=== PATIENT | female | born 1985 | race Caucasian/White ===

== ENCOUNTER 2016-08-06 11:17 | Emergency (ER) | payer BC ==
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
[2016-08-06 14:34] VITALS: BP 137/92
== END 2016-08-06 14:54 | disposition home or self-care (01) ==
LOC: UCEAST 11:17
DX: N63 Unspecified lump in breast (principal); N60.19 Diffuse cystic mastopathy of unspecified breast; Z80.3 Family history of malignant neoplasm of breast; F17.210 Nicotine dependence, cigarettes, uncomplicated
CPT/HCPCS: 99211; G0463

== ENCOUNTER 2016-11-21 20:55 | Emergency (ER) | payer BC, OTHER ==
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
[2016-11-21] MEDS ORDERED: Ibuprofen TAB* 400 MG PO ONE (21:54)
[2016-11-21 22:00] VITALS: BP 111/73
== END 2016-11-21 22:02 | disposition left against medical advice (07) ==
LOC: UCEAST 20:55
DX: M54.2 Cervicalgia (principal); R51 Headache; M25.521 Pain in right elbow; F41.9 Anxiety disorder, unspecified; F32.9 Major depressive disorder, single episode, unspecified; F17.210 Nicotine dependence, cigarettes, uncomplicated
CPT/HCPCS: 99212; A9270-GY; G0463

== ENCOUNTER 2016-11-21 22:18 | Emergency (ER) | payer SELFPAY ==
[2016-11-21] MEDS ORDERED: oxyCODONE/Acetamin 5/325 MG* TAB PO ONE (23:05)
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
[2016-11-21] MEDS ORDERED: Ondansetron ODT TAB* 4 MG PO ONE (23:41)
[2016-11-22] MEDS ORDERED: oxyCODONE/Acetamin 5/325 MG* TAB PO ONE (00:09)
[2016-11-22 00:50] VITALS: BP 115/70
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
== END 2016-11-22 00:45 | disposition home or self-care (01) ==
LOC: ED 22:18
DX: S50.01XA Contusion of right elbow, initial encounter (principal); R51 Headache; Y92.9 Unspecified place or not applicable; V89.2XXA Person injured in unspecified motor-vehicle accident, traffic, initial encounter; F17.210 Nicotine dependence, cigarettes, uncomplicated
CPT/HCPCS: 70450; 72040; A9270-GY

== ENCOUNTER 2018-06-26 15:34 | Emergency (ER) | payer BC, OTHER ==
--- NOTE | 2018-06-26 15:42 | UC ---
Upper Extremity HPI - HPI Summary HPI Summary: Fell backwards and caught herself w/ L arm after ice skating. - History of Current Complaint Chief Complaint: UCUpperExtremity Stated Complaint: L WRIST INJURY Time Seen by Provider: 06/26/18 15:41 Hx Last Menstrual Period: Tubal ligation ?: No Onset/Duration: Sudden Onset Severity Initially: Severe Severity Currently: Severe Character: Sharp, Throbbing Aggravating Factor(s): Movement Alleviating Factor(s): Nothing Associated Signs And Symptoms: Positive: Swelling, Redness - Allergies/Home Medications Allergies/Adverse Reactions: Allergies Allergy/AdvReac Type Severity Reaction Status Date / Time diphenhydramine Allergy Unknown Verified 06/26/18 15:53 [From Benadryl] Reaction Details Home Medications: Home Medications Buprenorp/Nalox 8-2 MG FILM [Suboxone] 1 mis SL DAILY 06/26/18 [History Confirmed 06/26/18] Duloxetine HCl [Cymbalta] 30 mg PO DAILY 06/26/18 [History Confirmed 06/26/18] buPROPion TAB* [Wellbutrin TAB*] 75 mg PO DAILY 06/26/18 [History Confirmed ] traZODone TAB* [Desyrel TAB*] 50 mg PO BEDTIME 06/26/18 [History Confirmed 06/26] PMH/Surg Hx/FS Hx/Imm Hx Previously Healthy: Yes Other History Of: Negative For: HIV, Hepatitis B, Hepatitis C, Anticoagulant Therapy - Surgical History Surgical History: Yes Surgery Procedure, Year, and Place: GALLBLADDER, 2011, [facility] [place]; tubes tied 10/08/12 - Family History Known Family History: Positive: Cardiac Disease, Hypertension, Other - BREAST CANCER - MOM - Social History Alcohol Use: None Substance Use Type: None Smoking Status (MU): Heavy Every Day Tobacco Smoker Type: Cigarettes Amount Used/How Often: 1 ppd Have You Smoked in the Last Year: Yes Household Exposure Type: Cigarettes Review of Systems All Other Systems Reviewed And Are Negative: Yes Constitutional: Positive: Negative Musculoskeletal: Positive: Edema, Other: - L arm pain Neurological: Positive: Negative. Negative: Paresthesia Physical Exam Triage Information Reviewed: Yes Appearance: Pain Distress Vital Signs Reviewed: Yes Cardiovascular: Negative: Delayed Capillary Refill Musculoskeletal: Positive: Strength Limited @, ROM Limited @, Edema @ - L arm Diagnostics - Radiology No standard instances Radiology Interpretation Completed By: Radiologist Summary of Radiographic Findings: IMPRESSION: #. Impacted intra-articular fracture of the distal radius. Upper Extremity Course/Dx - Course Course Of Treatment: L wrist fx after fall in a R handed pt. spoke w/ dr. carver who recommends Mon. follow up and splinting. sugar tong splint used on L arm and ibu given during visit. good vasculature, poor ROM due to severe pain. last took suboxone this AM so able to start pain med today and continue. she can start induction of suboxone after 72hrs from last opiate intake. ortho may decide to extend pain med. called pharmacy in advance to let them know pain med plan. also gave dr. resendiz notice of plan so that she may stay in tx. - Differential Dx/Diagnosis Differential Diagnosis/HQI/PQRI: Contusion, Fracture (Open), Fracture (Closed) Provider Diagnosis: Wrist fracture, left Discharge - Sign-Out/Discharge Documenting (check all that apply): Patient Departure All imaging exams completed and their final reports reviewed: Yes - Discharge Plan Condition: Good Disposition: HOME Prescriptions: oxyCODONE/Acetamin 5/325 MG* [Percocet 5/325 TAB*] 1 tab PO Q6H PRN 14 Days #56 tab MDD 4 tabs per day PRN Reason: Pain Patient Education Materials: Wrist Fracture in Adults (ED) Forms: *Work Release Referrals: James Carver MD [Medical Doctor] - Additional Instructions: Please call the Orthopedics office first thing in the morning on THU and make appt w/ FRANCI CARVER MD BETWEEN 10-1230p Thursday Please present this paperwork to Dr. Ibarra so that he is aware of the prescription and the reason. Opiates are appropriate for fractures. I tried calling his office but they told me to call Mon. but I will not be working. Presenting this paperwork should be sufficient. - Billing Disposition and Condition Condition: GOOD Disposition: Home
[2018-06-26] MEDS ORDERED: Ibuprofen TAB* 600 MG PO ONE (15:45)
[2018-06-26 15:51] VITALS: BP 151/103
== END 2018-06-26 17:15 | disposition home or self-care (01) ==
LOC: UCEAST 15:34
DX: S52.572A Other intraarticular fracture of lower end of left radius, initial encounter for closed fracture (principal); V00.211A Fall from ice-skates, initial encounter; Y93.21 Activity, ice skating; Y92.330 Ice skating rink (indoor) (outdoor) as the place of occurrence of the external cause; Z88.8 Allergy status to other drugs, medicaments and biological substances; F17.210 Nicotine dependence, cigarettes, uncomplicated
CPT/HCPCS: 99213; A9270-GY; G0463

== ENCOUNTER 2019-03-21 15:25 | Emergency (ER) | payer BC ==
[2019-03-21 15:46] VITALS: BP 139/91
[2019-03-21] MEDS ORDERED: Aspirin 81 mg CHEW TAB* 81 MG TAB.CHEW PO ONE (15:54)
--- NOTE | 2019-03-21 15:55 | UC ---
Cardiac HPI - HPI Summary HPI Summary: 33-year-old female comes in with a chief complaint of chest pain. Started last night which is laying down. Initially was epigastrium smoked up into her chest. And radiates up into her neck. It is intermittent. Describes it as sharp. Right now to 4 out of 10. Last several minutes at a time. Today the pains been worse when she has been active. Also feels short of breath. Decreased appetite. No history of pulmonary embolus or deep venous thrombosis. She has no calf pain no calf swelling. No history of hypertension. Her mother does have a history of hypertension. - History of Current Complaint Chief Complaint: UCChestPain Stated Complaint: CHEST PAIN Time Seen by Provider: 03/21/19 15:30 Hx Last Menstrual Period: 1 week ago Pain Intensity: 6 - Allergy/Home Medications Allergies/Adverse Reactions: Allergies Allergy/AdvReac Type Severity Reaction Status Date / Time diphenhydramine Allergy Unknown Verified 03/21/19 15:40 [From Benadryl] Reaction Details PMH/Surg Hx/FS Hx/Imm Hx Previously Healthy: Yes Other History Of: Negative For: HIV, Hepatitis B, Hepatitis C, Anticoagulant Therapy - Surgical History Surgical History: Yes Surgery Procedure, Year, and Place: GALLBLADDER, 2010, [facility]; tubes tied 10/08/12 - Family History Known Family History: Positive: Cardiac Disease, Hypertension, Other - BREAST CANCER - MOM - Social History Alcohol Use: None Substance Use Type: None Substance Use Comment - Amount & Last Used: hx of drug abuse; on suboxone Smoking Status (MU): Current Some Day Smoker Type: eCigarettes, Smokeless Tobacco Amount Used/How Often: 1 cig 3x per week Have You Smoked in the Last Year: Yes Household Exposure Type: Cigarettes Review of Systems All Other Systems Reviewed And Are Negative: Yes Constitutional: Positive: Other - SEE HPI Skin: Positive: Negative Eyes: Positive: Negative ENT: Positive: Negative Respiratory: Positive: Shortness Of Breath Cardiovascular: Positive: Chest Pain Gastrointestinal: Positive: Other - SEE HPI Motor: Positive: Negative Neurovascular: Positive: Negative Musculoskeletal: Negative: Calf Tenderness, Edema Neurological: Positive: Negative Psychological: Positive: Negative Is Patient Immunocompromised?: No Physical Exam Triage Information Reviewed: Yes Appearance: Well-Appearing, No Pain Distress, Well-Nourished Vital Signs: Initial Vital Signs Temp 99.1 F 03/21/19 15:41 Pulse 93 03/21/19 15:41 Resp 18 03/21/19 15:41 BP 139/91 03/21/19 15:41 Pulse Ox 100 03/21/19 15:41 Vital Signs Reviewed: Yes Eye Exam: Normal Eyes: Positive: Conjunctiva Clear Neck: Positive: Supple Respiratory: Positive: Chest non-tender, Lungs clear, Normal breath sounds, No respiratory distress Cardiovascular: Positive: RRR Abdomen Description: Positive: Nontender, Soft Bowel Sounds: Positive: Present Musculoskeletal: Positive: Strength Intact, ROM Intact, No Edema - NO CALF TENDERNESS Neurological: Positive: Alert Psychological: Positive: Age Appropriate Behavior Skin Exam: Normal Diagnostics - EKG Cardiac Rate: NL - at 1532 Cardiac Rhythm: Sinus: Normal - 90bpm Ectopy: None - borderline t abnormalities, anterior leads - Assessment/Plan Course Of Treatment: I discussed the EKG with the patient. She is an old EKG from 2011 and there are some new changes compared to the [address] elevation seen on this EKG no ectopy. Recommended further evaluation emergency Department. Patient declined embolus transport his going by POV. Patient was given aspirin 324 mg by mouth in clinic. - Clinical Impression Provider Diagnosis: Chest pain Discharge ED - Sign-Out/Discharge Documenting (check all that apply): Patient Departure All imaging exams completed and their final reports reviewed: No Studies - Discharge Plan Condition: Stable Disposition: HOME-RECOMMEND TO ED Referrals: [facility] [place] PHYSICIAN REFERRAL [Outside] Additional Instructions: GO DIRECTLY TO THE EMERGENCY DEPARTMENT FOR FURTHER EVALUATION OF YOUR CHEST PAIN. - Billing Disposition and Condition Condition: STABLE Disposition: Home-Recommend to ED
[2019-03-21] MEDS ORDERED: Aspirin 81 mg CHEW TAB* 81 MG TAB.CHEW ONE (16:03)
== END 2019-03-21 16:08 | disposition home health service (06) ==
LOC: UCEAST 15:25
DX: R07.9 Chest pain, unspecified (principal); F17.210 Nicotine dependence, cigarettes, uncomplicated
CPT/HCPCS: 93005; 99212; A9270-GY; G0463

== ENCOUNTER 2019-03-21 16:27 | Emergency (ER) | payer BC ==
[2019-03-21 16:54] LABS: ABS Basophils 0.1 10^3/ul (0-0.2); ABS Eosinophils 0.2 10^3/ul (0-0.6); ABS Lymphocytes 2.2 10^3/ul (1.0-4.8); ABS Monocytes 0.5 10^3/ul (0-0.8); ABS Neutrophils 5.3 10^3/ul (1.5-7.7); Eosinophil % 2.6 %; Hematocrit 39 % (35-47); Hemoglobin 13.3 g/dL (12.0-16.0); Lymphocyte % 26.9 %; Mean Corpuscular HGB Conc 34 g/dL (31-36); Mean Corpuscular Hemoglobin 28 pg (27-31); Mean Corpuscular Volume 82 fL (80-97); Mean Platelet Volume 7.1 fL (7.4-10.4); Platelet Count 284 10^3/uL (150-450); Red Blood Count 4.78 10^6 /uL (3.70-4.87); Red Cell Distribution Width 13 % (10-15); White Blood Count 8.3 10^3/uL (3.5-10.8)
[2019-03-21 17:09] LABS: INR 1.01 (0.82-1.09)
[2019-03-21 17:22] LABS: Albumin 4.4 g/dL (3.2-5.2); Calcium 9.5 mg/dL (8.6-10.3); Potassium 3.6 mmol/L (3.5-5.0); Total Bilirubin 0.3 mg/dL (0.2-1.0)
[2019-03-21 17:28] LABS: Albumin/Globulin Ratio 1.4 (1-3); BUN/Creatinine Ratio 18.8 (8-20); EGFR African American 117.2 (>60); EGFR Non-African American 96.8 (>60); Globulin 3.1 g/dL (2-4); Total Protein 7.5 g/dL (6.4-8.9)
[2019-03-21 20:37] LABS: C Reactive Protein 12.66 mg/L (<8.01)
--- NOTE | 2019-03-21 21:13 | ED ---
HPI Chest Pain - HPI Summary HPI Summary: 33 year old female presents with chest pain. States that it is sharp pain in center of chest. Does not radiate anyone. Admits to shortness breath. States that is intermittent. He is getting better. Denies any recent illness. He is on Suboxone. No fevers. No cough. No abdominal pain. No nausea vomiting. Has no medical conditions. Does not smoke. Denies any recent travel. No family history of blood clots. Does have family history of cardiac disease with a heart attack at 44 for dad. Was given aspirin prior to arrival. - History of Current Complaint Chief Complaint: EDChestPainROMI Time Seen by Provider: 03/21/19 19:58 Hx Last Menstrual Period: 1 week ago Pain Intensity: 4 - Allergy/Home Medications Allergies/Adverse Reactions: Allergies Allergy/AdvReac Type Severity Reaction Status Date / Time diphenhydramine Allergy Unknown Verified 03/21/19 16:36 [From Benadryl] Reaction Details PMH/Surg Hx/FS Hx/Imm Hx Endocrine/Hematology History: Denies: Hx Anticoagulant Therapy, Hx Diabetes, Hx Thyroid Disease Cardiovascular History: Denies: Hx Congestive Heart Failure, Hx Deep Vein Thrombosis, Hx Hypertension , Hx Myocardial Infarction, Hx Pacemaker/ICD, Other Cardiovascular Problems/ Disorders Respiratory History: Denies: Hx Asthma, Hx Chronic Obstructive Pulmonary Disease (COPD), Hx Lung Cancer, Hx Pneumonia, Hx Pulmonary Embolism, Other Respiratory Problems/ Disorders GI History: Denies: Hx Gall Bladder Disease, Hx Gastrointestinal Bleed, Hx Ulcer, Hx Urosepsis, Other GI Disorders History: Denies: Hx Kidney Stones, Hx Renal Disease, Other Problems/Disorders Musculoskeletal History: Denies: Other Musculoskeletal History Sensory History: Reports: Hx Contacts or Glasses - CONTACTS AND GLASSES Denies: Hx Hearing Aid Opthamlomology History: Reports: Hx Contacts or Glasses - CONTACTS AND GLASSES Neurological History: Reports: Hx Migraine - HEAD INJURY A CHILD, NO MIGRAINES NOW Denies: Hx Dementia, Hx Seizures, Hx Transient Ischemic Attacks (TIA), Other Neuro Impairments/Disorders Psychiatric History: Reports: Hx Anxiety, Hx Depression, Other Psychiatric Issues/Disorders - migraine Denies: Hx Schizophrenia, Hx Bipolar Disorder, Hx Substance Abuse - Surgical History Surgery Procedure, Year, and Place[place] [facility] [place] Hx Anesthesia Reactions: No - Immunization History Date of Tetanus Vaccine: UNK Date of Influenza Vaccine: NOT THIS YEAR Infectious Disease History: No Infectious Disease History: Denies: Hx Clostridium Difficile, Hx Hepatitis, Hx Human Immunodeficiency Virus (HIV), Hx of Known/Suspected MRSA, Hx Shingles, Hx Tuberculosis, Hx Known/ Suspected VRE, Hx Known/Suspected VRSA, History Other Infectious Disease, Traveled Outside the [place] in Last 30 Days - Family History Known Family History: Positive: Cardiac Disease, Hypertension, Other - BREAST CANCER - MOM - Social History Alcohol Use: None Substance Use Type: Reports: None Substance Use Comment - Amount & Last Used: hx of drug abuse; on suboxone Smoking Status (MU): Former Smoker Type: eCigarettes, Smokeless Tobacco Amount Used/How Often: 1 cig 3x per week Have You Smoked in the Last Year: Yes Review of Systems Negative: Fever Positive: Chest Pain Positive: Shortness Of Breath. Negative: Cough Negative: Abdominal Pain All Other Systems Reviewed And Are Negative: Yes Physical Exam Triage Information Reviewed: Yes Vital Signs On Initial Exam: Initial Vitals Temp Pulse Resp BP Pulse Ox 98.7 F 95 16 137/93 100 03/21/19 16:33 03/21/19 16:33 03/21/19 16:33 03/21/19 16:33 03/21/19 16:33 Vital Signs Reviewed: Yes Appearance: Positive: Well-Appearing Skin: Positive: Warm, Dry Head/Face: Positive: Normal Head/Face Inspection Eyes: Positive: Normal, EOMI, TEODORO, Conjunctiva Clear ENT: Positive: Normal ENT inspection, Pharynx normal, TMs normal Respiratory/Lung Sounds: Positive: Clear to Auscultation, Breath Sounds Present , Other - nonreproducable chest pain Cardiovascular: Positive: Normal, RRR Abdomen Description: Positive: Nontender, Soft Bowel Sounds: Positive: Present Musculoskeletal: Positive: Normal Neurological: Positive: Normal Psychiatric: Positive: Normal Diagnostics - Vital Signs Vital Signs Temp Pulse Resp BP Pulse Ox 03/21/19 20:02 75 9 122/91 96 03/21/19 20:01 75 11 100 03/21/19 19:30 98.5 F 84 16 115/72 100 03/21/19 16:33 98.7 F 95 16 137/93 100 - Laboratory Lab Results: Lab Results 09/23/19 09/23/19 09/23/19 Range/Units 16:41 16:41 16:41 WBC 8.3 (3.5-10.8) 10^3/uL RBC 4.78 (3.70-4.87) 10^6 /uL Hgb 13.3 (12.0-16.0) g/dL Hct 39 (35-47) % MCV 82 (80-97) fL MCH 28 (27-31) pg MCHC 34 (31-36) g/dL RDW 13 (10-15) % Plt Count 284 (150-450) 10^3/uL MPV 7.1 L (7.4-10.4) fL Neut % (Auto) 63.8 % Lymph % (Auto) 26.9 % Hanson % (Auto) 5.6 % Eos % (Auto) 2.6 % Baso % (Auto) 1.1 % Absolute Neuts (auto) 5.3 (1.5-7.7) 10^3/ul Absolute Lymphs (auto) 2.2 (1.0-4.8) 10^3/ul Absolute Monos (auto) 0.5 (0-0.8) 10^3/ul Absolute Eos (auto) 0.2 (0-0.6) 10^3/ul Absolute Basos (auto) 0.1 (0-0.2) 10^3/ul Absolute Nucleated RBC 0.0 10^3/ul Nucleated RBC % 0.0 INR (Anticoag Therapy) 1.01 (0.82-1.09) D-Dimer, Quantitative < 200 (Less Than 230) ng/mL Sodium 137 (135-145) mmol/L Potassium 3.6 (3.5-5.0) mmol/L Chloride 103 (101-111) mmol/L Carbon Dioxide 27 (22-32) mmol/L Anion Gap 7 (2-11) mmol/L BUN 13 (6-24) mg/dL Creatinine 0.69 (0.51-0.95) mg/dL Est GFR ( Amer) 117.2 (>60) Est GFR (Non-Af Amer) 96.8 (>60) BUN/Creatinine Ratio 18.8 (8-20) Glucose 75 (70-100) mg/dL Calcium 9.5 (8.6-10.3) mg/dL Total Bilirubin 0.30 (0.2-1.0) mg/dL AST 69 H (13-39) U/L ALT 145 H (7-52) U/L Alkaline Phosphatase 145 H (34-104) U/L Troponin I 0.00 (<0.04) ng/mL C-Reactive Protein 12.66 H (<8.01) mg/L Total Protein 7.5 (6.4-8.9) g/dL Albumin 4.4 (3.2-5.2) g/dL Globulin 3.1 (2-4) g/dL Albumin/Globulin Ratio 1.4 (1-3) 03/21/19 Range/Units 19:38 WBC (3.5-10.8) 10^3/uL RBC (3.70-4.87) 10^6 /uL Hgb (12.0-16.0) g/dL Hct (35-47) % MCV (80-97) fL MCH (27-31) pg MCHC (31-36) g/dL RDW (10-15) % Plt Count (150-450) 10^3/uL MPV (7.4-10.4) fL Neut % (Auto) % Lymph % (Auto) % Hanson % (Auto) % Eos % (Auto) % Baso % (Auto) % Absolute Neuts (auto) (1.5-7.7) 10^3/ul Absolute Lymphs (auto) (1.0-4.8) 10^3/ul Absolute Monos (auto) (0-0.8) 10^3/ul Absolute Eos (auto) (0-0.6) 10^3/ul Absolute Basos (auto) (0-0.2) 10^3/ul Absolute Nucleated RBC 10^3/ul Nucleated RBC % INR (Anticoag Therapy) (0.82-1.09) D-Dimer, Quantitative (Less Than 230) ng/mL Sodium (135-145) mmol/L Potassium (3.5-5.0) mmol/L Chloride (101-111) mmol/L Carbon Dioxide (22-32) mmol/L Anion Gap (2-11) mmol/L BUN (6-24) mg/dL Creatinine (0.51-0.95) mg/dL Est GFR ( Amer) (>60) Est GFR (Non-Af Amer) (>60) BUN/Creatinine Ratio (8-20) Glucose (70-100) mg/dL Calcium (8.6-10.3) mg/dL Total Bilirubin (0.2-1.0) mg/dL AST (13-39) U/L ALT (7-52) U/L Alkaline Phosphatase (34-104) U/L Troponin I 0.00 (<0.04) ng/mL C-Reactive Protein (<8.01) mg/L Total Protein (6.4-8.9) g/dL Albumin (3.2-5.2) g/dL Globulin (2-4) g/dL Albumin/Globulin Ratio (1-3) Result Diagrams: 03/21/19 16:41 03/21/19 16:41 Lab Statement: Any lab studies that have been ordered have been reviewed, and results considered in the medical decision making process. - Radiology chest Radiology Interpretation Completed By: ED Physician Summary of Radiographic Findings: no acute findings - EKG No standard instances Cardiac Rate: NL EKG Rhythm: Sinus Rhythm EKG Comparison: No Significant Change Summary of EKG Findings: sinus rhythm Chest Pain Course/Dx - Course Course Of Treatment: 33 year old female presents with chest pain. States that it is sharp pain in center of chest. Does not radiate anyone. Admits to shortness breath. States that is intermittent. He is getting better. Denies any recent illness. He is on Suboxone. No fevers. No cough. No abdominal pain. No nausea vomiting. Has no medical conditions. Does not smoke. Denies any recent travel. No family history of blood clots. Does have family history of cardiac disease with a heart attack at 44 for dad. Was given aspirin prior to arrival. On exam nonreproducible chest pain. Lungs clear to auscultation. Chest x-ray normal. EKG shows sinus rhythm. Troponins 2 zero. D-dimer negative. Will have follow-up with primary. Patient understands agrees with plan. - Chest Pain Differential Diagnosis/HQI/PQRI: Angina, Chest Wall, Pulmonary Embolism - Diagnoses Provider Diagnoses: Atypical chest pain Discharge ED - Sign-Out/Discharge Documenting (check all that apply): Patient Departure Patient Received Moderate/Deep Sedation with Procedure: No - Discharge Plan Condition: Good Disposition: HOME Patient Education Materials: Chest Pain (ED) Referrals: No Primary Care Phys,NOPCP [Primary Care Provider] - Additional Instructions: follow up with primary within 5 days take tyenlol or ibuprofen every 6 hours for pain Return to ED if develop any new or worsening symptoms - Billing Disposition and Condition Condition: GOOD Disposition: Home
[2019-03-21 21:26] VITALS: BP 107/66
== END 2019-03-21 21:28 | disposition home or self-care (01) ==
LOC: ED 16:27
DX: R07.89 Other chest pain (principal); F41.9 Anxiety disorder, unspecified; F32.9 Major depressive disorder, single episode, unspecified; Z87.891 Personal history of nicotine dependence; Z79.899 Other long term (current) drug therapy; Z88.8 Allergy status to other drugs, medicaments and biological substances
CPT/HCPCS: 36415; 71046; 80053; 84484; 85025; 85379; 85610; 86140; 93005; 99283